=== PATIENT | male | born 1955 | race Caucasian/White ===

== ENCOUNTER → 2017-09-29 | Day surgery (SDC) | payer BC ==
[~2017-09-29] MED LIST: AMBIEN5 MG PO; AMLODIPINE BESY10 MG PO; ASPIRIN CHEW81 MG PO; ATENOLOL50 MG PO; CENTRUM SILVER1 EAC3 PO; CIALIS20 MG PO; DEXAMETHASONE SOD PHOS 10 MG/1 ML VIAL ONE; FENTANYL CITRATE/PF 100MCG/2 ML INJ ONE; IOPAMIDOL 200 MG/ML 20 ML VIAL IT ONE; LIDOCAINE HCL 1% 30ML-PF VIAL ONE; MIDAZOLAM HCL 2 MG/2 ML VIAL ONE; NEXIUM40 MG PO; NORCO 10-325 T1 EACH PO; SINGULAIR10 MG PO; TEMAZEPAM15 MG PO; ZOLOFT50 MG PO
== END | disposition home or self-care (01) ==
LOC: OR 06:37
PROVIDERS: ATTEND Physical Medicine & Rehabilitation Pain Medicine
DX: M54.16 Radiculopathy, lumbar region (principal); M54.12 Radiculopathy, cervical region; I10 Essential (primary) hypertension; R05 Cough; E66.9 Obesity, unspecified; F32.9 Major depressive disorder, single episode, unspecified; F41.9 Anxiety disorder, unspecified; F17.210 Nicotine dependence, cigarettes, uncomplicated; Z68.30 Body mass index [BMI] 30.0-30.9, adult; Z91.81 History of falling
CPT/HCPCS: 64483; 93005; J1100; J2001; J2250; Q9966; 77003